=== PATIENT | female | born 1960 | race Caucasian/White ===

== ENCOUNTER 2020-01-22 23:09 | Emergency (ER) | payer OTHER, SELFPAY ==
[2020-01-22 23:09] VITALS: BP 130/87; PULSE 72; RESP 16; TEMP 36.9; O2SAT 97; BMI 25.5
[2020-01-22 23:41] VITALS: BP 130/87; PULSE 75; RESP 18; O2SAT 98
--- NOTE | 2020-01-23 00:31 | ED.DCSUM_ITS ---
- ER Visit Summary Date of Service: 01/23/20 Chief Complaint: Tick bite approximately 1 week ago with development of fever and red rash left upper shoulder blade. History of Present Illness: The patient is a 59 F past medical history of shingles. Patient had symptoms of fever and fatigue over the last week. She had a tick bite last Wednesday. She removed it from her left shoulder area. She has had fevers of 100 102. Denies any cough. No shortness of breath. No nausea, vomiting or diarrhea. No dysuria. No abdominal pain. Tonight her and her significant other noticed a red rash on her left upper shoulder. Physical Examination: Middle-aged female no acute distress vital signs stable afebrile. H EENT exam unremarkable. Neck nontender no lymphadenopathy. No meningismus. Able to touch her chin to chest. Lungs clear to auscultation bilaterally. Heart regular rhythm no murmur. Abdomen is soft and nontender. Patient is moving all 4 extremities. No edema. No redness. No hot or swollen joints. Neurovascular intact. Normal range of motion. 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 Back her left upper shoulder blade there is an area approximately 8 inches x 4 inches red round rash there is no central clearing. Reportedly the tick bite was lateral to this but there is no nogueira or signs of any bite at this time. There is no other rash, redness or swelling anywhere else on her body. There is no abscess. There is no fluctuance. Neurologically she is awake and alert with no focal motor deficits. Test Results: Lyme testing was sent but will not return tonight. Emergency Department Course and Treatment: Patient will be treated for suspected Lyme disease. She had a tick bite a week ago. Has had fevers of 100 202. And now has a red rash in her left shoulder blade. She will be started on doxycycline 100 twice daily for 2 weeks. Follow-up with infectious disease. And Lyme testing was sent. Treatment Plan: Fluids and rest. Tylenol Motrin for fever. Doxycycline 100 twice daily for 2 weeks. Follow-up with Dr. Wiseman of infectious disease I think it could be Lyme disease. Disposition: Discharge Impression: Fever and rash post tick bite Rule out Lyme disease This note was generated with [employer] software. It may contain incorrect words, spelling, and punctuation that were not noted in review of the chart prior to signing ED Disposition - Plan for ED Patient: Referrals: Care Physician,No Primary [Primary Care Provider] -
--- NOTE | 2020-01-23 00:35 | ED.DEP ---
ED Disposition - Plan for ED Patient: Disposition: Home or Assisted Living Instructions: Tick Bites, ED Lyme Disease Prescriptions: Doxycycline 100 mg PO BID #28 cap Prescription Printed Referrals: Beni Wiseman MD [STAFF PHYSICIAN] - As soon as possible Additional Instructions: Plenty of fluids and rest. Alternate Tylenol and Motrin for fever. Call and follow-up with Dr. Beni Wiseman of infectious disease to be further evaluated for possible Lyme disease. Doxycycline 100 mg twice daily for 2 weeks. The infectious disease doctor may alter or lengthen the course of your treatment.
[2020-01-23] MEDS: Doxycycline 100 MG CAPSULE PO (00:41)
[2020-01-23 00:50] LABS: Lyme Ab Screen Interpretation REF LAB
[2020-01-27 11:11] LABS: Lyme Scn Total Ab w/Rflx 1.41 ISR (0.00-0.90)
== END 2020-01-23 00:48 | disposition home or self-care (01) ==
PROVIDERS: Emergency Provider Emergency Medicine
DX: R50.9 Fever, unspecified (principal); R21 Rash and other nonspecific skin eruption; W57.XXXA Bitten or stung by nonvenomous insect and other nonvenomous arthropods, initial encounter
CPT/HCPCS: 86618; 99283; A4216